=== PATIENT | male | born 1990 | race Caucasian/White ===

== ENCOUNTER 2021-09-30 00:35 | Emergency (ER) | payer SELFPAY ==
[~2021-09-30] VITALS: Ht 167.6 cm; Wt 68.0 kg
[2021-09-30 00:35] VITALS: BP 109/75
--- NOTE | 2021-09-30 00:36 | NUR ---
BIBA TAKEN TO BED #2 Addendum: 09/30/21 at 0038 by MEDGJ TO BED #3
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
--- NOTE | 2021-09-30 01:00 | NUR ---
PT GIVEN FOOD
--- NOTE | 2021-09-30 07:15 | NUR ---
Report and continuation of care received from JOSEPH Morales.
[2021-09-30 07:25] VITALS: BP 113/73
--- NOTE | 2021-09-30 08:15 | NUR ---
Patient awake and demonstrated good ambulating without unsteady gait.
--- NOTE | 2021-09-30 08:23 | NUR ---
Patient discharged with v/s stable. Written and verbal after care instructions given and explained. Patient verbalized understanding. Ambulatory with steady gait. All questions addressed prior to discharge. Advised to follow up with PMD.
== END 2021-09-30 08:23 | disposition home or self-care (01) ==
LOC: MED 00:35
DX: F10.129 Alcohol abuse with intoxication, unspecified (principal)
CPT/HCPCS: 99283